=== PATIENT | female | born 1980 | race Caucasian/White ===

== ENCOUNTER 2016-08-24 02:02 | Emergency (ER) | payer SELFPAY ==
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
[2016-08-24 07:36] VITALS: BP 102/61
== END 2016-08-24 07:38 | disposition home or self-care (01) ==
LOC: ER 02:02
DX: S05.12XA Contusion of eyeball and orbital tissues, left eye, initial encounter (principal); H20.9 Unspecified iridocyclitis; W50.0XXA Accidental hit or strike by another person, initial encounter; Y93.89 Activity, other specified; H53.8 Other visual disturbances; Z88.1 Allergy status to other antibiotic agents; Z88.5 Allergy status to narcotic agent; Z88.8 Allergy status to other drugs, medicaments and biological substances; F17.200 Nicotine dependence, unspecified, uncomplicated
CPT/HCPCS: 70200; 99283

== ENCOUNTER 2016-08-28 08:50 | Emergency (ER) | payer SELFPAY ==
--- NOTE | 2016-08-28 10:53 | ER Document Report ---
ED Respiratory Problem - General Chief Complaint: Cold Symptoms Stated Complaint: COUGH Information source: Patient Notes: Patient is a 36-year-old female who is a smoker with no past medical history of asthma who presents today with the onset yesterday of nasal congestion, cough, rhinorrhea, without vomiting or diarrhea. She believes she had a low-grade fever last evening. No antipyretics this morning, and temperature 98.5. Patient states her daughter has had similar symptoms. TRAVEL OUTSIDE OF THE [place] IN LAST 30 DAYS: No - HPI Patient complains to provider of: Cough Onset: Other - See above Duration: Continuous Quality of pain: No pain Severity: Mild Pain Level: Denies Context: Smoker, Other Short of Breath: Mild Cough: Productive Sputum amount: Scant Associated symptoms: Other - See above Similar symptoms previously: Yes Recently seen / treated by doctor: No - Related Data Allergies/Adverse Reactions: cefaclor [From Ceclor] Allergy (Mild, Verified 08/28/16 09:03) Tachycardia codeine [Codeine] Allergy (Mild, Verified 08/28/16 09:03) Tachycardia fexofenadine HCl [From Jazmine] Allergy (Mild, Verified 08/28/16 09:03) Anxiety morphine Allergy (Mild, Verified 08/28/16 09:03) propoxyphene napsylate [From Darvocet-N 100] Allergy (Mild, Verified 08/28/16 09 :03) Shortness of Breath Past Medical History - General Information source: Patient - Social History Smoking Status: Current Every Day Smoker Cigarette use (# per day): No Chew tobacco use (# tins/day): No Frequency of alcohol use: None Drug Abuse: None Family History: Reviewed & Not Pertinent Patient has suicidal ideation: No Patient has homicidal ideation: No Pulmonary Medical History: Reports: Hx Bronchitis Renal/ Medical History: Denies: Hx Peritoneal Dialysis Past Surgical History: Reports: Hx Cholecystectomy - Immunizations Immunizations up to date: Yes Hx Diphtheria, Pertussis, Tetanus Vaccination: Yes Review of Systems - Review of Systems EENT: Nose congestion, Nose discharge. denies: Eye discharge, Sinus pressure, Sinus discharge Cardiovascular: denies: Chest pain, Palpitations, Dizziness, Lightheaded Respiratory: denies: Short of breath Gastrointestinal: denies: Diarrhea, Vomiting Genitourinary: denies: Dysuria Musculoskeletal: denies: Leg swelling Skin: Other - no hives. denies: Rash Neurological/Psychological: Other - no slurred speech -: Yes All other systems reviewed and negative Physical Exam - Vital signs Vitals: Temp Pulse Resp BP Pulse Ox 98.5 F 89 18 131/79 H 98 08/28/16 08:55 08/28/16 08:55 08/28/16 08:55 08/28/16 08:55 08/28/16 08:55 Interpretation: Normal Notes: Reviewed vital signs and nursing note as charted by RN. CONSTITUTIONAL: Alert and oriented and responds appropriately to questions. Well -appearing; well-nourished HEAD: Normocephalic; atraumatic ENT: Normal nose; bilateral excessive rhinorrhea; moist mucous membranes; pharynx without lesions noted NECK: Supple without meningismus; non-tender; no cervical lymphadenopathy, no masses CARD: Regular rate and rhythm; no murmurs, no clicks, no rubs, no gallops; symmetric distal pulses RESP: Normal chest excursion without splinting or tachypnea; breath sounds clear and equal bilaterally; no wheezes or rhonchi. Satting 98% on room air. ABD/GI: Normal bowel sounds; non-distended; soft, non-tender BACK: The back appears normal and is non-tender to palpation, there is no CVA tenderness EXT: Normal ROM in all joints; non-tender to palpation; no cyanosis, no effusions, no edema SKIN: Normal color for age and race; warm; dry; good turgor; capillary refill < 2 seconds; no acute lesions noted NEURO: Moves all extremities equally; Motor and sensory function intact PSYCH: The patient's mood and manner are appropriate. Grooming and personal hygiene are appropriate. Course - Re-evaluation Re-evalutation: 08/28/16 10:52 Given history and physical examination of this well-appearing female in no acute distress, satting 98 and 99% on room air, afebrile, with clear lungs bilaterally, with copious nasal rhinorrhea, I believe the patient most likely has a viral upper history tract infection. I do not believe it is necessary to obtain an x-ray of the chest at this time. Strict return precautions will be explained. - Vital Signs Vital signs: Temp Pulse Resp BP Pulse Ox 98.5 F 89 18 131/79 H 98 08/28/16 08:55 02/06/17 08:55 08/28/16 08:55 08/28/16 08:55 08/28/16 08:55 Discharge - Discharge Clinical Impression: Nasal congestion, Cough Condition: Good Disposition: HOME, SELF-CARE Additional Instructions: Please go to the pharmacy and obtain Afrin spray as well as Robitussin cough and cold. Please take as directed. Please come back immediately for any worsening cough, fever, lethargy, persistent vomiting, or any other acute problems.
[2016-08-28 11:00] VITALS: BP 130/75
== END 2016-08-28 10:58 | disposition home or self-care (01) ==
LOC: ER 08:50
DX: R09.81 Nasal congestion (principal); R05 Cough; R50.9 Fever, unspecified; F17.210 Nicotine dependence, cigarettes, uncomplicated
CPT/HCPCS: 99283

== ENCOUNTER 2017-12-10 10:30 | Emergency (ER) | payer MEDICAID ==
[2017-12-10 10:39] VITALS: BP 123/74
[2017-12-10] MEDS ORDERED: ONDANSETRON HCL INJ/PF 4 MG/2 ML SDV IV ONE (10:48)
[2017-12-10] MEDS ORDERED: FENTANYL CITRATE INJ/PF 100 MCG/2 ML AMPUL IV ONE (10:48)
--- NOTE | 2017-12-10 10:50 | ER Document Report ---
ED Medical Screen (RME) - General Chief Complaint: Abdominal Pain Stated Complaint: NAUSEA Time Seen by Provider: 12/10/17 10:45 Notes: RAPID MEDICAL EVALUATION DISCLOSURE I have seen this patient as part of a Rapid Medical Evaluation and, if applicable, placed any initially appropriate orders. The patient will be seen and fully evaluated, including a full history and physical exam, by a provider ( in Main ED or Fast Track) when a room becomes available. 37-year-old female here with complaints of nausea vomiting diarrhea right lower quadrant and inguinal region pain ongoing for the past 2 days. She is also had fevers and chills. Fever was measured at home around 101.4 Fahrenheit. She is tried Tylenol for the pain with minimal relief. Pain is sometimes worse with straining. No dysuria hematuria. Still has her appendix but no gallbladder. EXAM RLQ TTP Right nicola-inguinal TTP TRAVEL OUTSIDE OF THE [place] IN LAST 30 DAYS: No - Related Data Allergies/Adverse Reactions: cefaclor [From Ceclor] Allergy (Mild, Verified 08/28/16 09:03) Tachycardia codeine [Codeine] Allergy (Mild, Verified 08/28/16 09:03) Tachycardia fexofenadine HCl [From Jazmine] Allergy (Mild, Verified 08/28/16 09:03) Anxiety morphine Allergy (Mild, Verified 08/28/16 09:03) propoxyphene napsylate [From Darvocet-N 100] Allergy (Mild, Verified 08/28/16 09 :03) Shortness of Breath Past Medical History Pulmonary Medical History: Reports: Hx Bronchitis Renal/ Medical History: Denies: Hx Peritoneal Dialysis Past Surgical History: Reports: Hx Cholecystectomy - Immunizations Immunizations up to date: Yes Hx Diphtheria, Pertussis, Tetanus Vaccination: Yes Physical Exam - Vital signs Vitals: Temp Pulse Resp BP Pulse Ox 98.4 F 63 20 123/74 100 12/10/17 10:38 12/10/17 10:38 12/10/17 10:38 12/10/17 10:38 12/10/17 10:38 Course - Vital Signs Vital signs: Temp Pulse Resp BP Pulse Ox 98.4 F 63 20 123/74 100 12/10/17 10:38 12/10/17 10:38 12/10/17 10:38 12/10/17 10:38 12/10/17 10:38
[2017-12-10 12:48] LABS: ALANINE AMINOTRANSFERASE 136 U/L (9-52); ALBUMIN 3.9 g/dL (3.5-5.0); ALKALINE PHOSPHATASE 82 U/L (38-126); ANION GAP 14 (5-19); ASPARTATE AMINO TRANSFERASE 87 U/L (14-36); BILIRUBIN,DIRECT 0.4 mg/dL (0.0-0.4); BILIRUBIN,TOTAL 0.4 mg/dL (0.2-1.3); BLOOD UREA NITROGEN 7 mg/dL (7-20); CALCIUM 9.4 mg/dL (8.4-10.2); CARBON DIOXIDE 26 mmol/L (22-30); CHLORIDE 107 mmol/L (98-107); GLUCOSE 95 mg/dL (75-110); LIPASE 51.4 U/L (23-300); POTASSIUM 4.2 mmol/L (3.6-5.0); SODIUM 146.7 mmol/L (137-145); TOTAL PROTEIN 7.6 g/dL (6.3-8.2)
[2017-12-10 13:42] LABS: APPEARANCE,URINE CLEAR; BILIRUBIN,URINE NEGATIVE (NEGATIVE); COLOR,URINE YELLOW; GLUCOSE, URINE NEGATIVE (NEGATIVE); KETONES,URINE NEGATIVE (NEGATIVE); LEUKOCYTE ESTERASE,URINE NEGATIVE (NEGATIVE); NITRITE,URINE NEGATIVE (NEGATIVE); PROTEIN,URINE NEGATIVE (NEGATIVE); URINE SPECIFIC GRAVITY 1.011; UROBILINOGEN,URINE NEGATIVE mg/dL (<2.0)
[2017-12-10 14:18] LABS: ABSOLUTE EOSINOPHILS # (AUTO) 0.1 10^3/uL (0.0-0.6); ABSOLUTE LYMPHOCYTES (AUTO) 2.1 10^3/uL (0.5-4.7); ABSOLUTE MONOCYTES (AUTO) 0.4 10^3/uL (0.1-1.4); ABSOLUTE NEUT (AUTO) 4.1 10^3/uL (1.7-8.2); BASOPHILS % (AUTO) 0.4 % (0-2); EOSINOPHILS % (AUTO) 1.7 % (0-6); HEMATOCRIT 37.7 % (36.0-47.0); HEMOGLOBIN 12.4 g/dL (12.0-15.5); LYMPHOCYTES % (AUTO) 30.9 % (13-45); MEAN CORPUSCULAR HEMOGLOBIN 26.7 pg (27.0-33.4); MEAN CORPUSCULAR HGB CONC 32.9 g/dL (32.0-36.0); MEAN CORPUSCULAR VOLUME 81 fl (80-97); MONOCYTES % (AUTO) 6.4 % (3-13); PLATELET COUNT 221 10^3/uL (150-450); RED BLOOD COUNT 4.65 10^6/uL (3.72-5.28); RED CELL DISTRIBUTION WIDTH 14.6 % (11.5-14.0); SEGMENTED NEUTROPHILS % (AUTO) 60.6 % (42-78); TOTAL CELLS COUNTED % (AUTO) 100 %; WHITE BLOOD COUNT 6.7 10^3/uL (4.0-10.5)
--- NOTE | 2017-12-10 14:43 | ER Document Report ---
ED GI/ - General Mode of Arrival: Ambulatory Information source: Patient TRAVEL OUTSIDE OF THE [place] IN LAST 30 DAYS: No <SUSANNA KAY - Last Filed: 12/10/17 15:41> <KIRAN LEWIS - Last Filed: 12/11/17 01:25> - General Chief Complaint: Abdominal Pain Stated Complaint: NAUSEA Time Seen by Provider: 12/10/17 10:45 Notes: Patient is a 37-year-old female that presents to the emergency department today with complaints of right-sided abdominal pain. Patient states she is having vaginal bleeding however she is currently on her period. Patient states she has had associated fevers, diarrhea, and nausea. Patient denies any vomiting. ( SUSANNA KAY) - Related Data Allergies/Adverse Reactions: cefaclor [From Ceclor] Allergy (Mild, Verified 08/28/16 09:03) Tachycardia codeine [Codeine] Allergy (Mild, Verified 08/28/16 09:03) Tachycardia fexofenadine HCl [From Jazmine] Allergy (Mild, Verified 08/28/16 09:03) Anxiety morphine Allergy (Mild, Verified 08/28/16 09:03) propoxyphene napsylate [From Darvocet-N 100] Allergy (Mild, Verified 08/28/16 09 :03) Shortness of Breath Past Medical History - General Information source: Patient - Social History Smoking Status: Current Some Day Smoker Cigarette use (# per day): Yes - 15 Frequency of alcohol use: None Drug Abuse: None Lives with: Family Family History: Reviewed & Not Pertinent Patient has suicidal ideation: No Patient has homicidal ideation: No Pulmonary Medical History: Reports: Hx Bronchitis Past Surgical History: Reports: Hx Cholecystectomy - Immunizations Immunizations up to date: Yes Hx Diphtheria, Pertussis, Tetanus Vaccination: Yes <SUSANNA KAY - Last Filed: 12/10/17 15:41> Review of Systems - Review of Systems Constitutional: See HPI, Fever EENT: No symptoms reported Cardiovascular: No symptoms reported Respiratory: No symptoms reported Gastrointestinal: See HPI, Abdominal pain, Diarrhea, Nausea. denies: Vomiting Genitourinary: No symptoms reported Female Genitourinary: No symptoms reported Musculoskeletal: No symptoms reported Skin: No symptoms reported Hematologic/Lymphatic: No symptoms reported Neurological/Psychological: No symptoms reported -: Yes All other systems reviewed and negative <SUSANNA KAY - Last Filed: 12/10/17 15:41> Physical Exam <SUSANNA KAY - Last Filed: 12/10/17 15:41> - Vital signs Interpretation: Normal - General General appearance: Appears well, Alert - HEENT Head: Normocephalic, Atraumatic Eyes: Normal Pupils: PERRL - Respiratory Respiratory status: No respiratory distress Chest status: Nontender Breath sounds: Normal Chest palpation: Normal - Cardiovascular Rhythm: Regular Heart sounds: Normal auscultation Murmur: No - Abdominal Inspection: Normal Distension: No distension Bowel sounds: Normal Tenderness: Tender - R pelvic TTP, Palpable bulge in R inguinal area with bearing down Organomegaly: No organomegaly - Genitourinary External exam: Normal Speculum exam: Normal Vaginal bleeding: Mild Bimanuel exam: No: Cervical motion tender, Adnexal mass, Adnexal tenderness, Uterus enlarged - Back Back: Normal, Nontender - Extremities General upper extremity: Normal inspection, Nontender, Normal color, Normal ROM , Normal temperature General lower extremity: Normal inspection, Nontender, Normal color, Normal ROM , Normal temperature, Normal weight bearing. No: Vinny's sign - Neurological Neuro grossly intact: Yes Cognition: Normal Orientation: AAOx4 [place] Coma Scale Eye Opening: Spontaneous Traci Coma Scale Verbal: Oriented [place] Coma Scale Motor: Obeys Commands Traci Coma Scale Total: 15 Speech: Normal Motor strength normal: LUE, RUE, LLE, RLE Sensory: Normal - Psychological Associated symptoms: Normal affect, Normal mood - Skin Skin Temperature: Warm Skin Moisture: Dry Skin Color: Normal <KIRAN LEWIS - Last Filed: 12/11/17 01:25> - Vital signs Vitals: Temp Pulse Resp BP Pulse Ox 98.4 F 63 20 123/74 100 12/10/17 10:38 12/10/17 10:38 12/10/17 10:38 12/10/17 10:38 12/10/17 10:38 - Notes Notes: Physical Exam: General: Alert, appears well. HEENT: Normocephalic. Atraumatic. PERRL. Extraocular movements intact. Oropharynx clear. Neck: Supple. Non-tender. Respiratory: No respiratory distress. Clear and equal breath sounds bilaterally. Cardiovascular: Regular rate and rhythm. Abdominal: Normal Inspection. Non-tender. No distension. Normal Bowel Sounds. Back: Non-tender. No deformity or step off. Extremities: Moves all four extremities. Upper extremities: Normal inspection. Normal ROM. Lower extremities: Normal inspection. No edema. Normal ROM. Neurological: Normal cognition. AAOx4. Normal speech. Psychological: Normal affect. Normal Mood. Skin: Warm. Dry. Normal color. (SUSANNA KAY) Course - Laboratory Result Diagrams: 12/10/17 14:05 12/10/17 12:00 <SUSANNA KAY - Last Filed: 12/10/17 15:41> - Laboratory Result Diagrams: 12/10/17 14:05 12/10/17 12:00 <KIRAN LEWIS - Last Filed: 12/11/17 01:25> - Re-evaluation Re-evalutation: 12/11/17 Patient is a 37-year-old female who comes in complaining of right pelvic pain. No concern for STDs. Patient had imaging of CT abdomen and pelvis which did not show any acute abnormalities. Unable to visualize ovary on ultrasound. Patient does not have any adnexal tenderness to palpation. Patient seems to have more discomfort in inguinal area consistent with probable hernia. She has had stable vitals here with no fever. Patient is comfortable going home at this time. She will be referred to general surgery for further evaluation. Return immediately if any worsening or concerning symptoms. Stable for discharge (KIRAN LEWIS) - Vital Signs Vital signs: Temp Pulse Resp BP Pulse Ox 98.4 F 63 20 123/74 100 12/10/17 10:38 12/10/17 10:38 12/10/17 10:38 12/10/17 10:38 12/10/17 10:38 - Laboratory Laboratory results interpreted by il: 12/10/17 12/10/17 12/10/17 12:00 13:06 14:05 MCH 26.7 L RDW 14.6 H Sodium 146.7 H AST 87 H ALT 136 H Urine Blood SMALL H Discharge <SUSANNA KAY - Last Filed: 12/10/17 15:41> <KIRAN LEWIS - Last Filed: 12/11/17 01:25> - Discharge Clinical Impression: Probable hernia Abdominal pain Qualifiers: Abdominal location: right lower quadrant Qualified Code(s): R10.31 - Right lower quadrant pain Condition: Stable Disposition: HOME, SELF-CARE Instructions: Abdominal Pain ([facility]), Hernia ([facility]) Prescriptions: Ondansetron [Zofran Odt 4 mg Tablet] 1 - 2 tab PO Q4HP PRN #20 tab.rapdis PRN Reason: Tramadol HCl 50 mg PO TIDP PRN #14 tablet PRN Reason: Referrals: HEIDI EAGLE MD [Primary Care Provider] - Follow up in 3-5 days ELYSE HUANG MD [ACTIVE STAFF] - Follow up in 1 week Scribe Attestation: 12/11/17 01:25 I personally performed the services described in the documentation, reviewed and edited the documentation which was dictated to the scribe in my presence, and it accurately records my words and actions. (KIRAN LEWIS) Scribe Documentation - Scribe Written by Scribe:: Florencia Peña, 12/10/2017 1547 acting as scribe for :: Chetna <SUSANNA KAY - Last Filed: 12/10/17 15:41>
--- NOTE | 2017-12-10 15:15 | RADIOLOGY REPORT (SQ) ---
EXAM DESCRIPTION: CT ABD/PELVIS WITH IV ONLY COMPLETED DATE/TIME: 12/10/2017 2:57 pm REASON FOR STUDY: RLQ and inguinal pain; appendix? hernia? COMPARISON: None. TECHNIQUE: CT scan of the abdomen and pelvis performed using helical scanning technique with dynamic intravenous contrast injection. No oral contrast. Images reviewed with lung, soft tissue, and bone windows. Reconstructed coronal and sagittal MPR images reviewed. Delayed images for evaluation of the urinary system also acquired. All images stored on PACS. All CT scanners at this facility use dose modulation, iterative reconstruction, and/or weight based d osing when appropriate to reduce radiation dose to as low as reasonably achievable (ALARA). [facility]: Dose Right [facility]: CareDose [facility]: Dose Right [facility]: Teradose 4D [facility]: [employer] Systems CONTRAST TYPE AND DOSE: contrast/concentration: Isovue 370.00 mg/ml; Total Contrast Delivered: 90.0 ml; Total Saline Delivered: 70.0 ml RENAL FUNCTION: Creatinine 0.7 RADIATION DOSE: CT Rad equipment meets quality standard of care and radiation dose reduction techniq ues were employed. CTDIvol: 11.2 - 14.6 mGy. DLP: 2336 mGy-cm.. LIMITATIONS: None. FINDINGS: LOWER CHEST: No significant findings. No nodules or infiltrates. LIVER: Normal size. No masses. No dilated ducts. SPLEEN: Normal size. No focal lesions. PANCREAS: No masses. No significant calcifications. No adjacent inflammation or peripancreatic fluid collections. Pancreatic duct not dilated. GALLBLADDER: Surgically absent ADRENAL GLANDS: No significant masses or asymmetry. RIGHT KIDNEY AND URETER: No solid masses. No significant calcifications. No hydronephrosis or hyd roureter. LEFT KIDNEY AND URETER: No solid masses. No significant calcifications. No hydronephrosis or hydr oureter. AORTA AND VESSELS: No aneurysm. No dissection. Renal arteries, SMA, celiac without stenosis. RETROPERITONEUM: No retroperitoneal adenopathy, hemorrhage or masses. BOWEL AND PERITONEAL CAVITY: No masses or inflammatory changes. No free fluid or peritoneal masses. APPENDIX: Normal. PELVIS: No mass. No free fluid. Normal bladder. Normal size female pelvic organs ABDOMINAL WALL: No masses. Small fat containing umbilical hernia. No right inguinal or right femora l hernia is identified. BONES: No significant or acute findings. OTHER: No other significant finding. IMPRESSION: NO SIGNIFICANT OR ACUTE FINDING IN THE ABDOMEN OR PELVIS ON CT SCAN WITH IV CONTRAST. TECHNICAL DOCUMENTATION: JOB ID: [id number] Quality ID # [id number]: Final reports with documentation of one or more dose reduction techniques (e.g., Au tomated exposure control, adjustment of the mA and/or kV according to patient size, use of iterative reconstruction technique) 2010 [employer]- All Rights Reserved Reading location - IP/workstation name: [facility]
[2017-12-10] MEDS ORDERED: KETOROLAC TROMETHAMINE INJ/PF 30 MG/1 ML SDV IV ONE (16:51)
--- NOTE | 2017-12-10 18:52 | RADIOLOGY REPORT (SQ) ---
EXAM DESCRIPTION: U/S NON OB PEL W/DOPPLER COMPLETED DATE/TIME: 12/10/2017 6:33 pm REASON FOR STUDY: R pelvic pain, evaluate ovary COMPARISON: CT of the abdomen pelvis dated 12/10/2017 TECHNIQUE: Dynamic and static grayscale images acquired of the pelvis via transabdominal approach an d recorded on PACS. Additional selected color Doppler and spectral images recorded. LIMITATIONS: Study is limited due to overlying bowel gas. FINDINGS: UTERUS: Contour normal. No mass. ENDOMETRIAL STRIPE: No focal or generalized thickening. No masses. CERVIX: 1.1 cm nabothian cyst is identified. RIGHT OVARY AND DOPPLER: Right ovary could not be visualized due to overlying bowel gas P LEFT OVARY AND DOPPLER: Left ovary could not be visualized due to overlying bowel gas P FREE FLUID: None noted. OTHER: No other significant finding. MEASUREMENTS: UTERUS: 9.7 x 5.2 x 6.0 cm ENDOMETRIAL STRIPE: 6 mm IMPRESSION: Limited study as noted above. No significant pelvic abnormalities were identified. TECHNICAL DOCUMENTATION: JOB ID: [id number] [employer]- All Rights Reserved Rev-12/07 Reading location - IP/workstation name: [email or web address]
== END 2017-12-10 21:15 | disposition home or self-care (01) ==
LOC: ER 10:30
DX: R10.31 Right lower quadrant pain (principal); R10.2 Pelvic and perineal pain; R19.7 Diarrhea, unspecified; R11.0 Nausea; F17.200 Nicotine dependence, unspecified, uncomplicated; Z88.1 Allergy status to other antibiotic agents; Z88.5 Allergy status to narcotic agent; Z88.8 Allergy status to other drugs, medicaments and biological substances; R50.9 Fever, unspecified; Z90.49 Acquired absence of other specified parts of digestive tract
CPT/HCPCS: 99284; 96374; 96375; 36415; 83690; 85025; 81025; 80053; 81001; 76856; 93976; 74177; J3010; J1885; J2405

== ENCOUNTER 2018-02-23 21:51 | Emergency (ER) | payer MEDICAID ==
--- NOTE | 2018-02-23 22:35 | ER Document Report ---
ED General - General Mode of Arrival: Ambulatory Information source: Patient <SUSANNA KAY - Last Filed: 02/24/18 00:46> <KIRAN LEWIS - Last Filed: 02/24/18 04:03> - General Chief Complaint: Anxiety Stated Complaint: POSSIBLE ANXIETY Time Seen by Provider: 02/23/18 22:18 Notes: Patient is a 37-year-old female that presents to the emergency department today for complaints of a "mental breakdown". Patient mentions her house was recently foreclosed on, her fianc recently told her that he did not want to be in a relationship with her any longer, and also that her fimicaela's mother took her two kids today thinking she needed some time alone which all contributed to her mental breakdown. Patient also admits to taking "about six" of her prescribed adderall today which she does not normally abuse she says. Patient denies any HI or SI. (SUSANNA KAY) - Related Data Allergies/Adverse Reactions: cefaclor [From Ceclor] Allergy (Verified 02/23/18 23:22) codeine Allergy (Verified 02/23/18 23:22) fexofenadine [From Jazmine] Allergy (Verified 02/23/18 23:22) haloperidol [From Haldol] Allergy (Verified 02/23/18 23:22) histamine phosphate [From Histatrol] Allergy (Verified 02/23/18 23:22) meperidine [From Demerol] Allergy (Verified 02/23/18 23:22) morphine Allergy (Verified 02/23/18 23:22) Past Medical History - General Information source: Patient - Social History Smoking Status: Current Every Day Smoker Cigarette use (# per day): Yes Family History: Reviewed & Not Pertinent Psychiatric Medical History: Reports: Hx Attention Deficit Hyperactivity Disorder, Hx Depression <SUSANNA KAY - Last Filed: 02/24/18 00:46> Review of Systems - Review of Systems Constitutional: No symptoms reported EENT: No symptoms reported Cardiovascular: No symptoms reported Respiratory: No symptoms reported Gastrointestinal: No symptoms reported Genitourinary: No symptoms reported Female Genitourinary: No symptoms reported Musculoskeletal: No symptoms reported Skin: No symptoms reported Hematologic/Lymphatic: No symptoms reported Neurological/Psychological: denies: Homicidal ideation, Suicidal ideation -: Yes All other systems reviewed and negative <SUSANNA KAY - Last Filed: 02/24/18 00:46> Physical Exam <SUSANNA KAY - Last Filed: 02/24/18 00:46> <KIRAN LEWIS - Last Filed: 02/24/18 04:03> - Vital signs Vitals: Temp Pulse Resp BP Pulse Ox 99.3 F 101 H 20 135/91 H 100 02/23/18 22:11 02/23/18 22:11 02/23/18 22:11 02/23/18 22:11 02/23/18 22:11 - Notes Notes: Physical Exam: General: Alert. HEENT: Normocephalic. Atraumatic. PERRL. Extraocular movements intact. Oropharynx clear. Dry mucous membranes. Neck: Supple. Non-tender. Respiratory: No respiratory distress. Clear and equal breath sounds bilaterally. Cardiovascular: Tachycardic, regular rhythm. Abdominal: Normal Inspection. Non-tender. No distension. Normal Bowel Sounds. Back: Non-tender. No deformity or step off. Extremities: Moves all four extremities. Upper extremities: Normal inspection. Normal ROM. Lower extremities: Normal inspection. No edema. Normal ROM. Neurological: Normal cognition. AAOx4. Normal speech. Psychological: Psychomotor agitation Skin: Warm. Dry. Normal color. (SUSANNA KAY) Course - Laboratory Result Diagrams: 02/23/18 23:00 02/23/18 23:00 <SUSANNA KAY - Last Filed: 02/24/18 00:46> - Laboratory Result Diagrams: 02/23/18 23:00 02/23/18 23:00 <KIRAN LEWIS - Last Filed: 02/24/18 04:03> - Re-evaluation Re-evalutation: 02/24/18 Patient is a 37-year-old female who comes in stating that she is having a mental breakdown. Patient also took multiple doses of Adderall today. States that she has been depressed recently. Patient has custody of her children but her family member took them with her because they were concerned about the patient this evening. Patient denies suicidal or homicidal ideation but has been depressed related to financial strain in relationship issues. Will be held for further evaluation by mental health. (KIRAN LEWIS) - Vital Signs Vital signs: Temp Pulse Resp BP Pulse Ox 99.3 F 101 H 20 135/91 H 100 02/23/18 22:11 02/23/18 22:11 02/23/18 22:11 02/23/18 22:11 02/23/18 22:11 - Laboratory Laboratory results interpreted by me: 02/23/18 02/23/18 23:00 23:00 Hgb 11.9 L Hct 35.0 L RDW 15.2 H AST 62 H ALT 92 H Salicylates < 1.0 L Acetaminophen < 10 L Discharge <SUSANNA KAY - Last Filed: 02/24/18 00:46> <KIRAN LEWIS - Last Filed: 02/24/18 04:03> - Discharge Clinical Impression: Amphetamine abuse, Depression (emotion) Condition: Stable Disposition: OTHER Instructions: Anxiety ([facility]) Referrals: HEIDI EAGLE MD [Primary Care Provider] - Follow up as needed Scribe Attestation: 02/24/18 04:03 I personally performed the services described in the documentation, reviewed and edited the documentation which was dictated to the scribe in my presence, and it accurately records my words and actions. (KIRAN LEWIS) Scribe Documentation - Scribe Written by Florencia:: Florencia Peña, 02/24/2018 0059 <SUSANNA KAY - Last Filed: 02/24/18 00:46>
[2018-02-23 23:26] LABS: ABSOLUTE EOSINOPHILS # (AUTO) 0.1 10^3/uL (0.0-0.6); ABSOLUTE LYMPHOCYTES (AUTO) 2.2 10^3/uL (0.5-4.7); ABSOLUTE MONOCYTES (AUTO) 0.9 10^3/uL (0.1-1.4); ABSOLUTE NEUT (AUTO) 5.6 10^3/uL (1.7-8.2); BASOPHILS % (AUTO) 0.5 % (0-2); HEMOGLOBIN 11.9 g/dL (12.0-15.5); LYMPHOCYTES % (AUTO) 24.6 % (13-45); MEAN CORPUSCULAR HEMOGLOBIN 27.5 pg (27.0-33.4); MEAN CORPUSCULAR VOLUME 81 fl (80-97); MONOCYTES % (AUTO) 10.2 % (3-13); PLATELET COUNT 278 10^3/uL (150-450); RED BLOOD COUNT 4.32 10^6/uL (3.72-5.28); RED CELL DISTRIBUTION WIDTH 15.2 % (11.5-14.0); SEGMENTED NEUTROPHILS % (AUTO) 63.7 % (42-78); TOTAL CELLS COUNTED % (AUTO) 100 %; WHITE BLOOD COUNT 8.8 10^3/uL (4.0-10.5)
[2018-02-23 23:53] LABS: ACETAMINOPHEN < 10 ug/mL (10-30); ALANINE AMINOTRANSFERASE 92 U/L (9-52); ALBUMIN 3.9 g/dL (3.5-5.0); ALKALINE PHOSPHATASE 66 U/L (38-126); ANION GAP 14 (5-19); ASPARTATE AMINO TRANSFERASE 62 U/L (14-36); BILIRUBIN,DIRECT 0.3 mg/dL (0.0-0.4); BILIRUBIN,TOTAL 0.8 mg/dL (0.2-1.3); BLOOD UREA NITROGEN 9 mg/dL (7-20); CALCIUM 9.4 mg/dL (8.4-10.2); CARBON DIOXIDE 24 mmol/L (22-30); CHLORIDE 105 mmol/L (98-107); GLUCOSE 98 mg/dL (75-110); POTASSIUM 3.8 mmol/L (3.6-5.0); SALICYLATE < 1.0 mg/dL (2.0-20.0); SODIUM 142.8 mmol/L (137-145); TOTAL PROTEIN 7.3 g/dL (6.3-8.2)
[2018-02-24] MEDS ORDERED: NORMAL SALINE INJ/PF 0.9% 10 ML SDV IV ONE ×2 (00:09→00:10)
[2018-02-24] MEDS ORDERED: 1/2 NORMAL SALINE 1,000 ML IV ONE (01:28)
--- NOTE | 2018-02-24 09:30 | ER Document Report ---
Doctor's Note Notes: 02/24/18 09:28 37-year-old female who took a few extra Adderall pills last night with multiple stressors at home including foreclosure on her house and relationship issues. Patient has suicidal ideations. Labs and vital signs as recorded. Awaiting psychology evaluation. 02/24/18 14:42 The psychology team is seen and assessed the patient. They do not believe the patient meets IVC requirements at this time. Patient denies any suicidal homicidal ideations at this time. The patient's children are at the grandmother 's house. We called the grandmother who is comfortable with the children staying them and also comfortable with the patient who is currently homeless, living with her. Given the drug abuse we have contacted [facility] and will make a report. Patient will be discharged home with [facility] set up for follow-up.
--- NOTE | 2018-02-24 09:48 | EKG REPORT ---
SEVERITY:- BORDERLINE ECG - SINUS RHYTHM PROBABLE LEFT ATRIAL ABNORMALITY BORDERLINE PROLONGED QT INTERVAL : Confirmed by: Malu Rodriguez 24-Feb-2018 09:47:13
[2018-02-24 11:01] LABS: APPEARANCE,URINE CLEAR; BILIRUBIN,URINE NEGATIVE (NEGATIVE); COLOR,URINE YELLOW; GLUCOSE, URINE NEGATIVE (NEGATIVE); KETONES,URINE NEGATIVE (NEGATIVE); LEUKOCYTE ESTERASE,URINE NEGATIVE (NEGATIVE); NITRITE,URINE NEGATIVE (NEGATIVE); PROTEIN,URINE NEGATIVE (NEGATIVE); URINE SPECIFIC GRAVITY 1.005; UROBILINOGEN,URINE NEGATIVE mg/dL (<2.0)
[2018-02-24 11:48] LABS: URINE BARBITURATES SCREEN NEGATIVE; URINE BENZODIAZEPINES SCREEN NEGATIVE; URINE COCAINE SCREEN UNCONFIRMED POSITIVE; URINE MARIJUANA (THC) SCREEN NEGATIVE; URINE METHADONE SCREEN NEGATIVE; URINE PHENCYCLIDINE SCREEN NEGATIVE
[2018-02-24 15:18] VITALS: BP 123/81
--- NOTE | 2018-02-25 19:28 | PSYCHOLOGICAL NOTE ---
Psych Note - Psych Note Psych Note: Patient presented for "mental breakdown"...patient reports that her house was foreclosed, no job, BF left her, moving in with Mom.she took 6 adderall when she was only prescribed 2. Then she ran some errands, came home to start packing and felt "funny". She got scared, ran to the neighbor's house, screaming and yelling that she was seeing "snakes". Neighbors called EMS. Pt reports that she doesn't remember taking adderall but she does remember going to the neighbors house and getting in the ambulance. Pt. very disheveled, constantly readjusting in her bed. Fair eye contact, fragmented conversation. Clinician contacted BF, he denies breakup but does travel alot and not in town much. BF says that she is very nice, just have alot going on. Pt. is currently seeing [facility] for medication management but no therapy. Patient denies that she was trying to kill herself that's why she ran to the neighbors house. Toxicology reports reveal that patient was positive for cocaine and opiates. When confronted with this information patiently vehemently denied and said that "we must have gotten her records missed up". Clinician asked if she was interested in sobriety and patient denied that she was using any drugs but that she would like to get any information. Clinician encouraged her to follow up with her provider and [facility] and gave her the number to [facility]. No Medication Recommendations Diagnosis: Substance Use Disorder, F15.10, Major Depressive Disorder with Psychotic features 296.34 Impression/Plan: Patient is cleared from Behavioral Health services. Patient is encouraged to follow up with outpatient provider and to access resources for her substance abuse. Patient presented agitated when she was confronted with the toxicology results but did accept the resources.
== END 2018-02-24 15:18 | disposition home or self-care (01) ==
LOC: MERGE 21:51 → ER 21:51
DX: F32.9 Major depressive disorder, single episode, unspecified (principal); F15.10 Other stimulant abuse, uncomplicated; R00.0 Tachycardia, unspecified; F90.9 Attention-deficit hyperactivity disorder, unspecified type; Z79.899 Other long term (current) drug therapy; F17.210 Nicotine dependence, cigarettes, uncomplicated; Z63.0 Problems in relationship with spouse or partner; Z88.1 Allergy status to other antibiotic agents; Z88.5 Allergy status to narcotic agent; Z88.8 Allergy status to other drugs, medicaments and biological substances
CPT/HCPCS: 93005; 99285; 96360; 36415; 80307 ×4; 84703; 85025; 80053; 81001; 93010; J3490

== ENCOUNTER → 2018-06-10 | Outpatient (CLI) | payer MEDICAID | LOC: OD 08:55 | PROVIDERS: ATTEND Pediatrics | DX: L03.114 Cellulitis of left upper limb (principal) | CPT/HCPCS: 36415; 82947; 83036 ==

== ENCOUNTER 2018-07-25 20:48 | Emergency (ER) | payer MEDICAID ==
[2018-07-25 22:52] LABS: A TYPE INFLUENZA AG NEGATIVE (NEGATIVE); B INFLUENZA AG NEGATIVE (NEGATIVE)
--- NOTE | 2018-07-25 22:53 | RADIOLOGY REPORT (SQ) ---
EXAM DESCRIPTION: XR CHEST 2 VIEWS COMPLETED DATE/TME: 07/25/2018 22:19 CLINICAL HISTORY: 38 years, Female, cough, sob COMPARISON: X-ray chest 11/15/2015 NUMBER OF VIEWS: TECHNIQUE: LIMITATIONS: None. FINDINGS: No evidence of pulmonary infiltrate or pleural effusion. The heart and mediastinum are unremarkable. Pulmonary vascularity appears normal. IMPRESSION: No acute finding. copyright 2010 [employer]- All Rights Reserved
[2018-07-25] MEDS ORDERED: DEXAMETHASONE SOD PHOS INJ 10 MG/1 ML VIAL IM ONE (23:30)
[2018-07-25] MEDS ORDERED: IPRATROPIUM/ALBUTEROL 0.5-2.5 MG/3 ML AMPUL NEB ONE (23:32)
[2018-07-25] MEDS ORDERED: BENZONATATE 100 MG CAPSULE PO ONE (23:32)
[2018-07-25] MEDS ORDERED: ALBUTEROL SULFATE HFA (90 MCG/PUFF) 200 PUFF/8.5 GM MDI IH ONE (23:32)
--- NOTE | 2018-07-25 23:34 | ER Document Report ---
ED General - General Chief Complaint: Flu Symptoms Stated Complaint: FLU SYMPTOMS Time Seen by Provider: 07/25/18 22:18 Notes: Patient is a 38-year-old female current everyday smoker, no other chronic medical problems who presents with feelings of fatigue, persistent cough and mild shortness of breath. The patient states that the symptoms have been ongoing for the past 5 days and has gotten progressively worse since onset. Nothing improves or worsens her symptoms. She has continued to smoke throughout the duration of this illness. She has not seen her general physician regarding today's concerns. She denies associated fever, vomiting, headache, neck pain, or altered mental status. TRAVEL OUTSIDE OF THE [place] IN LAST 30 DAYS: No - Related Data Allergies/Adverse Reactions: cefaclor [From Ceclor] Allergy (Mild, Verified 08/28/16 09:03) Tachycardia codeine [Codeine] Allergy (Mild, Verified 08/28/16 09:03) Tachycardia fexofenadine HCl [From Jazmine] Allergy (Mild, Verified 08/28/16 09:03) Anxiety morphine Allergy (Mild, Verified 08/28/16 09:03) propoxyphene napsylate [From Darvocet-N 100] Allergy (Mild, Verified 08/28/16 09:03) Shortness of Breath fexofenadine [From Jazmine] Allergy (Verified 02/23/18 23:22) haloperidol [From Haldol] Allergy (Verified 02/23/18 23:22) histamine phosphate [From Histatrol] Allergy (Verified 02/23/18 23:22) meperidine [From Demerol] Allergy (Verified 02/23/18 23:22) Past Medical History - General Information source: Patient - Social History Smoking Status: Current Every Day Smoker Cigarette use (# per day): Yes - 1 pack/day Chew tobacco use (# tins/day): No Smoking Education Provided: Yes - Smoking cessation counseling was provided for 4 minutes at the bedside Frequency of alcohol use: None Drug Abuse: None Lives with: Spouse/Significant other Family History: Reviewed & Not Pertinent Patient has suicidal ideation: No Patient has homicidal ideation: No Pulmonary Medical History: Reports: Hx Bronchitis Renal/ Medical History: Denies: Hx Peritoneal Dialysis Psychiatric Medical History: Reports: Hx Attention Deficit Hyperactivity Disorder, Hx Depression Past Surgical History: Reports: Hx Cholecystectomy - Immunizations Immunizations up to date: Yes Hx Diphtheria, Pertussis, Tetanus Vaccination: Yes Review of Systems - Review of Systems Notes: Constitutional: Negative for fever. Positive fatigue HENT: Negative for sore throat. Eyes: Negative for visual changes. Cardiovascular: Negative for chest pain. Respiratory: Positive cough and shortness of breath Gastrointestinal: Negative for abdominal pain, vomiting or diarrhea. Genitourinary: Negative for dysuria. Musculoskeletal: Negative for back pain. Skin: Negative for rash. Neurological: Negative for headaches, weakness or numbness. 10 point ROS negative except as marked above and in HPI. Physical Exam - Vital signs Vitals: Temp Pulse Resp BP Pulse Ox 98.4 F 108 H 24 H 130/83 H 98 07/25/18 20:57 07/25/18 20:57 07/25/18 20:57 07/25/18 20:57 07/25/18 20:57 Interpretation: Tachycardic - Resolved at the time of my assessment Notes: PHYSICAL EXAMINATION: GENERAL: Well-appearing, well-nourished and in no acute distress. HEAD: Atraumatic, normocephalic. EYES: Pupils equal round and reactive to light, extraocular movements intact, sclera anicteric, conjunctiva are normal. ENT: nares patent, oropharynx clear without exudates. Moderately dry mucous membranes. NECK: Normal range of motion, supple without lymphadenopathy LUNGS: Rhonchorous breath sounds in all lung nguyễn. No tachypnea or retractions. No distress. HEART: Regular rate and rhythm without murmurs ABDOMEN: Soft, nontender, normoactive bowel sounds. No guarding, no rebound. No masses appreciated. EXTREMITIES: Normal range of motion, no pitting or edema. No cyanosis. NEUROLOGICAL: No focal neurological deficits. Moves all extremities spontaneou sly and on command. PSYCH: Moderately anxious SKIN: Warm, Dry, normal turgor, no rashes or lesions noted. Course - Re-evaluation Re-evalutation: 07/25/18 23:31 Patient presents with a clinical history and exam most consistent with an acute viral bronchitis. Flu and chest x-ray testing are normal. Patient does have a rattling cough, persistent rhonchi in all lung nguyễn. Patient is overall well in appearance without tachypnea, hypoxemia, tachycardia (heart rate was initially mildly elevated in triage although it was 89 at the time of my assessment), or difficulty with ambulation. No fever. Patient does have additional signs of upper respiratory infection including nasal congestion, sore throat, fatigue, and sinus pressure. I do not clinically suspect an acute pulmonary embolus, at the time of my evaluation patient is PERC criteria negative. Will treat with bronchodilators, single dose of dexamethasone, and Tessalon Perles. At this time will discharge with return precautions and follow-up recommendations. Verbal discharge instructions given a the bedside and opportunity for questions given. Medication warnings reviewed. Patient is in agreement with this plan and has verbalized understanding of return precautions and the need for primary care follow-up in the next 24-72 hours. - Vital Signs Vital signs: Temp Pulse Resp BP Pulse Ox 98.4 F 108 H 12 124/81 100 07/25/18 20:57 07/25/18 20:57 07/26/18 00:23 07/26/18 00:23 07/26/18 00:23 - Diagnostic Test Radiology reviewed: Image reviewed, Reports reviewed Radiology results interpreted by me: 07/25/18 23:32 Chest x-ray: No acute infiltrate or pneumothorax Discharge - Discharge Clinical Impression: Lower respiratory infection, Nasal congestion, Body aches Fatigue Qualifiers: Fatigue type: unspecified Qualified Code(s): R53.83 - Other fatigue Condition: Good Disposition: HOME, SELF-CARE Additional Instructions: You were seen for symptoms most consistent with bronchitis. This can take up to 12 weeks to fully resolve. This is generally due to a viral infection. Please follow-up with your primary doctor in the next 2-3 days. Return if you develop worsening cough, vomiting, fever >100.4, pass out, begin coughing blood, or have any other symptoms that are concerning to you. Please use the medications prescribed today as directed. Prescriptions: Benzonatate [Tessalon Perles 100 mg Capsule] 100 mg PO Q8HP PRN #40 capsule PRN Reason: Forms: Smoking Cessation Education Referrals: HEIDI EAGLE MD [Primary Care Provider] - Follow up as needed
[2018-07-26 00:24] VITALS: BP 124/81
== END 2018-07-26 00:41 | disposition home or self-care (01) ==
LOC: ER 20:48
DX: J22 Unspecified acute lower respiratory infection (principal); R09.81 Nasal congestion; M79.10 Myalgia, unspecified site; R53.83 Other fatigue; R06.02 Shortness of breath; R05 Cough; F17.210 Nicotine dependence, cigarettes, uncomplicated; Z88.6 Allergy status to analgesic agent; Z90.49 Acquired absence of other specified parts of digestive tract
CPT/HCPCS: 94640; 99284; 96372; 87804; 71046; J3490 ×2; J1100; J7620

== ENCOUNTER 2019-04-08 18:53 | Emergency (ER) | payer MEDICAID ==
[2019-04-08] MEDS ORDERED: IPRATROPIUM/ALBUTEROL 0.5-2.5 MG/3 ML AMPUL NEB ONE (20:11)
[2019-04-08] MEDS ORDERED: METHYLPREDNISOLONE INJ 125 MG/2 ML SDV IM ONE (20:11)
--- NOTE | 2019-04-08 20:20 | ER Document Report ---
HPI - HPI Time Seen by Provider: 04/08/19 19:53 Pain Level: 1 Notes: Patient is a 38-year-old female with no significant past medical history aside from tobacco abuse and asthma who presents complaining of nasal congestion/discharge, postnasal drip, occasional dry cough, intermittent wheeze over the past 2 days. She is able to eat and drink without difficulty. She is urinating normally and having normal bowel movements. No other concerns or complaints. Denies any headache, fever, neck pain, sore throat, chest pain, palpitations, syncope, shortness of breath, dyspnea, abdominal pain, nausea/vomiting/diarrhea, urinary retention, dysuria, hematuria, or rash. - ROS Systems Reviewed and Negative: Yes All other systems reviewed and negative - RESPIRATORY Respiratory: REPORTS: Coughing - REPRODUCTIVE Reproductive: DENIES: : Past Medical History - Social History Smoking Status: Current Every Day Smoker Family History: Reviewed & Not Pertinent Patient has suicidal ideation: No Patient has homicidal ideation: No Pulmonary Medical History: Reports: Hx Bronchitis Renal/ Medical History: Denies: Hx Peritoneal Dialysis Psychiatric Medical History: Reports: Hx Attention Deficit Hyperactivity Disorder, Hx Depression Past Surgical History: Reports: Hx Cholecystectomy - Immunizations Immunizations up to date: Yes Hx Diphtheria, Pertussis, Tetanus Vaccination: Yes Vertical Provider Document - CONSTITUTIONAL Agree With Documented VS: Yes Notes: PHYSICAL EXAMINATION: GENERAL: Well-appearing, well-nourished and in no acute distress. A&Ox4. Answers questions appropriately. Moves comfortably w/o notable distress HEAD: Atraumatic, normocephalic. EYES: Pupils equal round and reactive to light, extraocular movements intact, sclera anicteric, conjunctiva are normal. ENT: EAC clear b/l. TM's intact b/l without erythema, fluid, or perforation. Nares patent and with clear discharge. oropharynx no erythema without exudates. No tonsilar hypertrophy without erythema or exudate. No palatine shift. Uvula midline. No tongue protrusion. No drooling, hoarseness, or airway compromise. Moist mucous membranes. No sinus tenderness. NECK: Normal range of motion, supple without lymphadenopathy. No rigidity/meningismus. LUNGS: Scant wheeze bilaterally primarily with expiration. No crackles or rales. No retractions HEART: Regular rate and rhythm without murmurs, rubs, gallops. NEUROLOGICAL: Normal speech, normal gait. PSYCH: Normal mood, normal affect. SKIN: Warm, Dry, normal turgor, no rashes or lesions noted. - INFECTION CONTROL TRAVEL OUTSIDE OF THE [place] IN LAST 30 DAYS: No Course - Re-evaluation Re-evalutation: 04/08/19 20:43 Patient is an afebrile, well-hydrated, 38-year-old female who presents to the ED with acute URI, suspect viral. Vitals are acceptable without significant tachycardia, tachypnea, or hypoxia. PE is otherwise unremarkable. No labs or imaging warranted at this time based on H&P. Patient has no significant cardiopulmonary or immunocompromised medical conditions. Patient was given DuoNeb and Solu-Medrol which significantly improved/resolved the wheezing was noted initially on exam. Patient is tolerating p.o. without any difficulties. Low suspicion for any meningitis, sepsis, peritonsillar/pharyngeal abscess, respiratory compromise, severe dehydration, or other emergent systemic condition at this time. Patient is aware this condition can change from initial prese ntation and she needs to monitor symptoms closely. Rx for albuterol. Conservative measures otherwise for symptoms. Recheck with your PCM in 3-5 days. Return to the ED with any worsening/concerning symptoms otherwise as reviewed in discharge. Patient is in agreement. - Vital Signs Vital signs: Temp Pulse Resp BP Pulse Ox 98.6 F 96 18 137/86 H 95 04/08/19 19:00 04/08/19 19:00 04/08/19 19:00 04/08/19 19:00 04/08/19 19:00 Discharge - Discharge Clinical Impression: Acute URI Condition: Stable Disposition: HOME, SELF-CARE Additional Instructions: Maintain adequate fluid intake tylenol/ibuprofen as needed alternating every 3 hours for fever/body ache over the counter cold medication as needed for symptoms Humidified air may help Wash your hands regularly Wear a mask when coughing F/u: with your PCM in 3-5 days for a recheck Return to the ED with any fever, altered mental status/behavior, chest pain, palpitations, syncope, headache, neck pain/stiffness, shortness of breath, chest pains, wheezing, drooling, trouble swallowing/breathing, abdominal pain, n/v/d, rash, or worsening/concerning symptoms otherwise. Prescriptions: Albuterol Sulfate [Proair HFA Inhalation Aerosol 8.5 gm MDI] 2 puff IH Q4H PRN #1 mdi PRN Reason: Forms: Elevated Blood Pressure, Smoking Cessation Education, Return to Work Referrals: HEIDI EAGLE MD [Primary Care Provider] - Follow up as needed
[2019-04-08 20:49] VITALS: BP 129/77
== END 2019-04-08 20:48 | disposition home or self-care (01) ==
LOC: ER 18:53
DX: J06.9 Acute upper respiratory infection, unspecified (principal); R06.2 Wheezing; R09.82 Postnasal drip; R05 Cough; R09.81 Nasal congestion; R09.89 Other specified symptoms and signs involving the circulatory and respiratory systems; F17.200 Nicotine dependence, unspecified, uncomplicated
CPT/HCPCS: J2930; J7620